=== PATIENT | male | born 1990 | race Hispanic/Latino ===

== ENCOUNTER 2022-09-11 06:42 | Emergency (ER) | payer OTHER ==
[~2022-09-11] VITALS: Ht 205.7 cm; Wt 186.9 kg
[2022-09-11 06:46] VITALS: BP 121/78
[2022-09-11] MEDS ORDERED: BACITRACIN 1 EACH PACKET TP ONE (07:40)
== END 2022-09-11 07:48 | disposition home or self-care (01) ==
LOC: EDH 06:42
DX: S51.012D Laceration without foreign body of left elbow, subsequent encounter (principal); X58.XXXD Exposure to other specified factors, subsequent encounter
CPT/HCPCS: 99281; 99282